=== PATIENT | female | born 1990 | race Two or more races ===

== ENCOUNTER 2019-11-23 20:35 | Emergency (ER) | payer SELFPAY ==
--- NOTE | 2019-11-23 21:37 | EDM.PDOC ---
ED HPI GENERAL MEDICAL PROBLEM - General Chief Complaint: Skin Complaint Stated Complaint: RASH Time Seen by Provider: 11/23/19 20:40 - History of Present Illness INITIAL COMMENTS - FREE TEXT/NARRATIVE: Patient is a 29-year-old female no significant past history who presents with diffuse pruritic papular rash. Patient reports that her little sister started to develop this problem first that was at this point months ago. She then developed it a month or 2 ago they share a bedroom but did not share a bed. Her mother now has the same problem she started to develop symptoms only a few days ago. They have seen multiple clinics they have been given topical hydrocortisone creams and permethrin they have washed their sheets and their close multiple times but problems persist. No fevers no chills no rashes pruritic it is worse at night and they note new lesions in the morning. But no fevers no chills no chest pain shortness of breath or other systemic symptoms. - Related Data Allergies Allergy/AdvReac Type Severity Reaction Status Date / Time No Known Allergies Allergy Verified 11/23/19 20:56 Home Meds: Home Meds Lisinopril/Hydrochlorothiazide [Lisinopril-Hctz 20-25 mg Tab] 1 mg PO DAILY 11/23/19 [History] Nebivolol HCl [Bystolic] 20 mg PO DAILY 11/23/19 [History] Sertraline [Zoloft] 25 mg PO DAILY 11/23/19 [History] hydrOXYzine HCL [Atarax] 25 mg PO Q8H PRN 7 Days #21 tab 11/23/19 [Rx] Past Medical History HEENT History: Reports: None Cardiovascular History: Reports: Hypertension Respiratory History: Reports: None Gastrointestinal History: Reports: None Genitourinary History: Reports: None [employer]IDENT History: Reports: None Musculoskeletal History: Reports: None Neurological History: Reports: None Psychiatric History: Reports: Depression Endocrine/Metabolic History: Reports: None Hematologic History: Reports: Anemia Immunologic History: Reports: None Oncologic (Cancer) History: Reports: None Dermatologic History: Reports: None - Infectious Disease History Infectious Disease History: Reports: None - Past Surgical History Head Surgeries/Procedures: Reports: None Social & Family History - Tobacco Use Smoking Status *Q: Never Smoker Second Hand Smoke Exposure: No - Caffeine Use Caffeine Use: Reports: None - Recreational Drug Use Recreational Drug Use: No ED ROS GENERAL - Review of Systems Review Of Systems: See Below Free Text/Narrative/Comment: General: No fever. Skin: Per HPI Eyes: No vision problems. ENT: No sore throat. Neck: No neck stiffness. Respiratory: No shortness of breath. Cardiac: No chest pain. Gastrointestinal: No nausea, vomiting or abdominal pain. Urinary: No dysuria. Musculoskeletal: No myalgias/arthralgias. Neurologic: No headache. ED EXAM, SKIN/RASH Exam: See Below Text/Narrative:: General Appearance: No acute distress, appears comfortable Skin: Diffuse small erythematous papules in the axilla and the elbows but also over the back and the legs no linear tracts or signs of scabies no bugs seen no signs of secondary infection no signs of cellulitis HEENT: Normocephalic/atraumatic, sclera anicteric, mucous membranes moist Neck: Normal range of motion Chest and Lungs: Bilateral breath sounds, clear to auscultation Cardiovascular: Regular rate and rhythm, no murmur Back: Normal Musculoskeletal: No edema or tenderness Neurologic: Awake, alert, no obvious deficits, moving all extremities Psychiatric: Appropriate, cooperative Course - Vital Signs Last Recorded V/S: Last Vital Signs Temp 97.3 F 11/23/19 20:50 Pulse 90 11/23/19 20:50 Resp 18 11/23/19 20:50 BP 147/90 H 11/23/19 20:50 Pulse Ox 98 11/23/19 20:50 - Orders/Labs/Meds Labs: Laboratory Tests 11/23/19 11/23/19 Range/Units 22:10 22:10 WBC 10.75 (4.0-11.0) K/uL RBC 4.39 (4.30-5.90) M/uL Hgb 12.7 (12.0-16.0) g/dL Hct 38.8 (36.0-46.0) % MCV 88.4 (80.0-98.0) fL MCH 28.9 (27.0-32.0) pg MCHC 32.7 (31.0-37.0) g/dL RDW Std Deviation 42.8 (28.0-62.0) fl RDW Coeff of Rne 13 (11.0-15.0) % Plt Count 237 (150-400) K/uL MPV 10.00 (7.40-12.00) fL Neut % (Auto) 55.4 (48.0-80.0) % Lymph % (Auto) 35.4 (16.0-40.0) % [place] % (Auto) 5.6 (0.0-15.0) % Eos % (Auto) 3.5 (0.0-7.0) % Baso % (Auto) 0.1 (0.0-1.5) % Neut # (Auto) 6.0 H (1.4-5.7) K/uL Lymph # (Auto) 3.8 H (0.6-2.4) K/uL [place] # (Auto) 0.6 (0.0-0.8) K/uL Eos # (Auto) 0.4 (0.0-0.7) K/uL Baso # (Auto) 0.0 (0.0-0.1) K/uL Nucleated RBC % 0.0 /100WBC Nucleated RBCs # 0 K/uL Sodium 135 L (136-145) mmol/L Potassium 3.5 (3.5-5.1) mmol/L Chloride 100 (98-107) mmol/L Carbon Dioxide 28.2 (21.0-32.0) mmol/L BUN 13 (7.0-18.0) mg/dL Creatinine 0.9 (0.6-1.0) mg/dL Est Cr Clr Drug Dosing TNP Estimated GFR (MDRD) > 60.0 ml/min Glucose 160 H (74-106) mg/dL Calcium 8.7 (8.5-10.1) mg/dL Meds: Medications Discontinued Medications Generic Name Dose Route Start Last Admin Trade Name Freq PRN Reason Stop Dose Admin Hydroxyzine HCl 25 mg 11/23/19 21:59 11/23/19 22:12 Atarax PO 11/23/19 22:00 25 mg ONETIME ONE Administration Departure - Departure Time of Disposition: 22:47 Disposition: Home, Self-Care 01 Condition: Good Clinical Impression: Bedbug bite - Discharge Information *PRESCRIPTION DRUG MONITORING PROGRAM REVIEWED*: Not Applicable *COPY OF PRESCRIPTION DRUG MONITORING REPORT IN PATIENT DEBORAH: Not Applicable Prescriptions: hydrOXYzine HCL [Atarax] 25 mg PO Q8H PRN 7 Days #21 tab PRN Reason: Itching Instructions: Bedbugs, [id number] Referrals: [facility] [Outside] - 1 Week Forms: ED Department Discharge Additional Instructions: The topical triamcinolone cream that you guys have been given by other providers can help some with the itching. However, unfortunately the problem will continue until the infestation can be eradicated. This is not something that you can do on your own. Because bedbugs and living so many places and can be so hard to get rid of it requires a professional extermination service. I urge you to employer the services of professional bedbug extermination service in order to ensure that the infestation is taking care of. The following information is given to patients seen in the emergency department who are being discharged to home. This information is to outline your options for follow-up care. We provide all patients seen in our emergency department with a follow-up referral. The need for follow-up, as well as the timing and circumstances, are variable depending upon the specifics of your emergency department visit. If you don't have a primary care physician on staff, we will provide you with a referral. We always advise you to contact your personal physician following an emergency department visit to inform them of the circumstance of the visit and for follow-up with them and/or the need for any referrals to a consulting specialist. The emergency department will also refer you to a specialist when appropriate. This referral assures that you have the opportunity for follow-up care with a specialist. All of these measure are taken in an effort to provide you with optimal care, which includes your follow-up. Under all circumstances we always encourage you to contact your private physician who remains a resource for coordinating your care. When calling for follow-up care, please make the office aware that this follow-up is from your recent emergency room visit. If for any reason you are refused follow-up, please contact the [facility] Emergency Department at and asked to speak to the emergency department charge nurse. Sepsis Event Note (ED) - Evaluation Sepsis Screening Result: No Definite Risk - Focused Exam Vital Signs: Vital Signs Temp Pulse Resp BP Pulse Ox 11/23/19 20:50 97.3 F 90 18 147/90 H 98 - Assessment/Plan Assessment:: 29-year-old female presenting with signs and symptoms most consistent with bug bite infestation no signs of secondary infection no signs of scabies patient given Atarax with some improvement in itching. Patient's mother adamantly denied blood work no clinical signs of secondary or systemic infection and lab work is unremarkable. Prescription for Atarax sent to the pharmacy patient's mother strongly encouraged to engage the services of a professional eradication service and inspection service. Follow-up with primary care.
[2019-11-23] MEDS ORDERED: hydrOXYzine HCl 25 MG Tab PO ONE (21:59)
[2019-11-23 22:32] LABS: BLOOD UREA NITROGEN,BUN 13 mg/dL (7.0-18.0); CARBON DIOXIDE,CO2 28.2 mmol/L (21.0-32.0); CHLORIDE,CL 100 mmol/L (98-107); GLUCOSE RANDOM 160 mg/dL (74-106); POTASSIUM,K 3.5 mmol/L (3.5-5.1); SODIUM,NA 135 mmol/L (136-145)
== END 2019-11-23 23:00 | disposition home or self-care (01) ==
LOC: MW.ED 20:35
DX: S40.869A Insect bite (nonvenomous) of unspecified upper arm, initial encounter (principal); S50.369A Insect bite (nonvenomous) of unspecified elbow, initial encounter; S30.860A Insect bite (nonvenomous) of lower back and pelvis, initial encounter; S80.861A Insect bite (nonvenomous), right lower leg, initial encounter; S80.862A Insect bite (nonvenomous), left lower leg, initial encounter; I10 Essential (primary) hypertension; F32.9 Major depressive disorder, single episode, unspecified; Z79.899 Other long term (current) drug therapy; W57.XXXA Bitten or stung by nonvenomous insect and other nonvenomous arthropods, initial encounter
CPT/HCPCS: 36415; 80048; 85025; 99283; A9270

== ENCOUNTER 2019-12-19 22:00 | Emergency (ER) | payer SELFPAY ==
[2019-12-19] MEDS ORDERED: diphenhydrAMINE 50 MG/ML SDV IM ONE (22:51)
[2019-12-19] MEDS ORDERED: predniSONE 20 MG Tab PO ONE (22:51)
--- NOTE | 2019-12-19 23:13 | EDM.PDOC ---
ED HPI GENERAL MEDICAL PROBLEM - General Chief Complaint: Skin Complaint Stated Complaint: RASH Time Seen by Provider: 12/19/19 22:45 - History of Present Illness INITIAL COMMENTS - FREE TEXT/NARRATIVE: HISTORY AND PHYSICAL: History of present illness: This is a 29-year-old female who presents ER today complaining of rash and itching all over her body for 2 days. Patient reports that she tried Claritin at home without any significant relief and today she tried permethrin cream and report it did not help but made the itching worse and burn. Patient denies any recent fevers, shakes, chills, nausea, vomiting, diarrhea, dysuria, frequency, urgency, chest pain, shortness of breath. Patient reports she does have a history of hypertension but denies any diabetes, liver, lung, kidney problems. Patient has any tobacco alcohol or drugs. Patient has no known drug allergies. Patient's last menstrual period was December 12. Patient denies any prior episodes of rashes similar to this. Patient denies any other family contacts with similar rashes at home. Review of systems: As per history of present illness and below otherwise all systems reviewed and negative. Past medical history: As per history of present illness and as reviewed below otherwise noncontributory. Surgical history: As per history of present illness and as reviewed below otherwise noncontributory. Social history: No reported history of drug or alcohol abuse. Family history: As per history of present illness and as reviewed below otherwise noncontributory. Physical exam: Constitutional: Patient is oriented to person, place, and time. Appears well- developed and well-nourished. No distress. HEENT: Moist mucous membranes Head: Normocephalic and atraumatic Eyes: Right eye exhibits no discharge. Left eye exhibits no discharge. No scleral icterus Neck: Normal range of motion. No tracheal deviation present. Cardiovascular: Normal rate and regular rhythm. Pulmonary: Effort normal, no respiratory distress. Abdominal: No distention Musculoskeletal: Normal range of motion Neurologic: Alert and oriented to person, place and time. Skin: [place], warm and dry. Patient with diffuse macular rash throughout her upper and lower extremities chest and back. Patient's oropharynx is clear without any evidence of stridor or airway compromise. No wheezing rales or rhonchi. Psychiatric: Normal mood and affect. Behavior is normal. Judgment and thought content normal. Nursing note and vital signs have been reviewed Assessment and plan: Rash of unclear etiology. Patient will be given empiric treatment with prednisone and Benadryl and reevaluation by her primary care physician or clinic in 3 to 5 days for reevaluation. Patient's rash does not appear to be consistent with scabies at this time. The following information is given to patients seen in the emergency department who are being discharged to home. This information is to outline your options for follow-up care. We provide all patients seen in our emergency department with a follow-up referral. The need for follow-up, as well as the timing and circumstances, are variable depending upon the specifics of your emergency department visit. If you don't have a primary care physician on staff, we will provide you with a referral. We always advise you to contact your personal physician following an emergency department visit to inform them of the circumstance of the visit and for follow-up with them and/or the need for any referrals to a consulting specialist. The emergency department will also refer you to a specialist when appropriate. This referral assures that you have the opportunity for follow-up care with a specialist. All of these measure are taken in an effort to provide you with optimal care, which includes your follow-up. Under all circumstances we always encourage you to contact your private physician who remains a resource for coordinating your care. When calling for follow-up care, please make the office aware that this follow-up is from your recent emergency room visit. If for any reason you are refused follow-up, please contact the [facility] Emergency Department at and asked to speak to the emergency department charge nurse. - Related Data Allergies Allergy/AdvReac Type Severity Reaction Status Date / Time No Known Allergies Allergy Verified 12/19/19 22:15 Home Meds: Home Meds Lisinopril/Hydrochlorothiazide [Lisinopril-Hctz 20-25 mg Tab] 1 mg PO DAILY 11/23/19 [History] Nebivolol HCl [Bystolic] 20 mg PO DAILY 11/23/19 [History] Sertraline [Zoloft] 50 mg PO DAILY 11/23/19 [History] hydrOXYzine HCL [Atarax] 25 mg PO Q8H PRN 7 Days #21 tab 11/23/19 [Rx] diphenhydrAMINE [Benadryl] 50 mg PO Q6HR PRN #20 cap 12/19/19 [Rx] predniSONE [Prednisone] 50 mg PO DAILY #5 tablet 12/19/19 [Rx] Past Medical History HEENT History: Reports: None Cardiovascular History: Reports: Hypertension Respiratory History: Reports: None Gastrointestinal History: Reports: None Genitourinary History: Reports: None 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 Musculoskeletal History: Reports: None Neurological History: Reports: None Psychiatric History: Reports: Depression Endocrine/Metabolic History: Reports: None Hematologic History: Reports: Anemia Immunologic History: Reports: None Oncologic (Cancer) History: Reports: None Dermatologic History: Reports: None - Infectious Disease History Infectious Disease History: Reports: None - Past Surgical History Head Surgeries/Procedures: Reports: None GI Surgical History: Reports: Cholecystectomy Social & Family History - Family History Family Medical History: Noncontributory Endocrine/Metabolic: Reports: Diabetes, Type I - Tobacco Use Smoking Status *Q: Never Smoker - Caffeine Use Caffeine Use: Reports: None - Recreational Drug Use Recreational Drug Use: No ED ROS GENERAL - Review of Systems Review Of Systems: See Below ED EXAM, SKIN/RASH Exam: See Below Course - Vital Signs Last Recorded V/S: Last Vital Signs Temp 96.2 F L 12/19/19 22:12 Pulse 84 12/19/19 22:12 Resp 18 12/19/19 22:12 BP 129/94 H 12/19/19 22:12 Pulse Ox 97 12/19/19 22:12 - Orders/Labs/Meds Meds: Medications Discontinued Medications Generic Name Dose Route Start Last Admin Trade Name Fidelq PRN Reason Stop Dose Admin Diphenhydramine HCl 50 mg 12/19/19 22:51 Benadryl IM 12/19/19 22:52 ONETIME ONE Prednisone 40 mg 12/19/19 22:51 Prednisone PO 12/19/19 22:52 ONETIME ONE Departure - Departure Time of Disposition: 23:10 Disposition: Home, Self-Care 01 Condition: Good Clinical Impression: Rash and nonspecific skin eruption - Discharge Information Instructions: Rash, Adult Referrals: PCP,None [Primary Care Provider] - Additional Instructions: You were seen and evaluated in the ER today for your rash. The etiology of your rash is not clear however we will trial a course of prednisone and Benadryl to see if that should help your rash. If there is no improvement within the next 2 to 3 days, please make an appointment to see your family doctor for further evaluation. He will be given the phone number for the clinic in case you do not have a family doctor here for evaluation. The following information is given to patients seen in the emergency department who are being discharged to home. This information is to outline your options for follow-up care. We provide all patients seen in our emergency department with a follow-up referral. The need for follow-up, as well as the timing and circumstances, are variable depending upon the specifics of your emergency department visit. If you don't have a primary care physician on staff, we will provide you with a referral. We always advise you to contact your personal physician following an emergency department visit to inform them of the circumstance of the visit and for follow-up with them and/or the need for any referrals to a consulting specialist. The emergency department will also refer you to a specialist when appropriate. This referral assures that you have the opportunity for follow-up care with a specialist. All of these measure are taken in an effort to provide you with optimal care, which includes your follow-up. Under all circumstances we always encourage you to contact your private physician who remains a resource for coordinating your care. When calling for follow-up care, please make the office aware that this follow-up is from your recent emergency room visit. If for any reason you are refused follow-up, please contact the [facility] Emergency Department at and asked to speak to the emergency department charge nurse. Eliana Regan [facility] - Internal Medicine [address] [place] [id number] Sepsis Event Note (ED) - Evaluation Sepsis Screening Result: No Definite Risk - Focused Exam Vital Signs: Vital Signs Temp Pulse Resp BP Pulse Ox 12/19/19 22:12 96.2 F L 84 18 129/94 H 97
== END 2019-12-19 23:26 | disposition home or self-care (01) ==
LOC: MW.ED 22:00
DX: R21 Rash and other nonspecific skin eruption (principal); I10 Essential (primary) hypertension; F32.9 Major depressive disorder, single episode, unspecified; Z90.49 Acquired absence of other specified parts of digestive tract; Z79.899 Other long term (current) drug therapy
CPT/HCPCS: 96372; 99282; A9270; J1200